=== PATIENT | female | born 1995 | race Two or more races ===

== ENCOUNTER 2016-09-09 07:51 | Day surgery (SDC) | payer OTHER ==
[~2016-09-09] VITALS: Ht 160 cm; Wt 60.7 kg
[2016-09-09 08:51] VITALS: Ht 160 cm; Wt 60.7 kg
[2016-09-09] MEDS ORDERED: FER325 PO (08:58)
[2016-09-09] MEDS ORDERED: CANA1000R PR (08:58)
[2016-09-09] MEDS ORDERED: PROPOFOL 20 ML ONE (09:26)
[2016-09-09 09:30] VITALS: BP 110/58; PULSE 78; RESP 12
[2016-09-09 10:20] VITALS: BP 153/72; PULSE 80; RESP 19
[2016-09-09 10:38] VITALS: BP 115/58; PULSE 84; RESP 19
--- NOTE | 2016-09-09 11:20 | GILP ---
DATE OF PROCEDURE: NAME OF PROCEDURES: Colonoscopy and biopsy. SURGEON: Olive Rajput MD PREOPERATIVE DIAGNOSES: 1. Rectal bleeding. 2. History of ulcerative proctitis. POSTOPERATIVE DIAGNOSES 1. Colonoscopy all the way to the cecum and into the terminal ileum. 2. Normal terminal ileum. 3. Ulcerative colitis extending up to the hepatic flexure. 4. Random biopsies were taken for histopathology. 5. Internal hemorrhoids. INDICATION FOR THE PROCEDURE: Ms. Niki Reed is a 20-year-old female patient who had rectal bl eeding and iron deficiency anemia. The patient had history of ulcerative proctitis. The patient wa s having diarrhea. The patient was scheduled for further evaluation. The procedure and possible complications are well explained to the patient and the family and consen t was obtained. DESCRIPTION OF PROCEDURE: Under the influence of anesthesia, the colonoscope was carefully introduc ed in the rectum and under direct vision, it was advanced all the way to the cecum and through the i leocecal valve into the terminal ileum. FINDINGS: The terminal ileum was normal. The patient was noted to have ulcerative colitis extendin g all the way up to the hepatic flexure. The right colon looked normal. Random biopsies were taken for histopathology. The patient was noted to have internal hemorrhoids. She tolerated the procedure very well and there was no complication from the procedure. At the end of the procedure, she was awake with stable vital signs and she was discharged home to the care of h er family. IMPRESSION: Please see postoperative diagnosis. PLAN: 1. Apriso 2 tablets p.o. b.i.d. 2. Await histopathology report. Dictated By: OLIVE RODRÍGUEZ/RANULFO Conf#: [id number] DID#: [id number]
== END 2016-09-09 11:59 | disposition home or self-care (01) ==
LOC: GIL 07:51
PROVIDERS: ATTEND Internal Medicine Gastroenterology
DX: Z12.11 Encounter for screening for malignant neoplasm of colon (principal); K51.90 Ulcerative colitis, unspecified, without complications; K64.8 Other hemorrhoids
CPT/HCPCS: 45380; 84703; 88305; Z7610